=== PATIENT | male | born 1985 | race Caucasian/White ===

== ENCOUNTER 2020-10-13 20:27 | Emergency (ER) | payer BC ==
[~2020-10-13] VITALS: Ht 177.8 cm; Wt 108.9 kg
[2020-10-13] MEDS ORDERED: HYDCHL25 PO (22:01)
== END 2020-10-13 23:00 | disposition home or self-care (01) ==
LOC: ER 20:27
DX: T18.8XXA Foreign body in other parts of alimentary tract, initial encounter (principal); Z79.899 Other long term (current) drug therapy
CPT/HCPCS: 70360; 71046; 74018; 99283-25

== ENCOUNTER 2021-05-03 06:15 | Day surgery (SDC) | payer OTHER ==
[~2021-05-03] VITALS: Ht 177.8 cm; Wt 121.9 kg
[~2021-05-03 06:15] MED LIST: HYDCHL25 PO; Vitamin B Comple1 EA PO
--- NOTE | 2021-05-03 06:52 | NUR ---
Ambulatory in Day Surgery History, Chart, Medications and Allergies reviewed before start of procedure. Lungs clear anteriorly to Auscultation. Pre-Op teaching done. Pt verbalizes understanding. Patient States Post-Procedure ride home has been arranged.
--- NOTE | 2021-05-03 07:57 | NUR ---
05/03/21 0757 Batsheva Sandoval NO ANTIBIOTICS ORDERED PER PHYSICIAN
--- NOTE | 2021-05-03 09:27 | NUR ---
PT MEETS CRITERIA FOR DC. Patient up to Ambulate independently. Gait steady. Discharge instructions reviewed with patient. Patient verbalizes understanding. Copy given to patient to take home. Discharged via wheelchair to private car for ride home.
== END 2021-05-03 23:12 | disposition home or self-care (01) ==
LOC: ORSCMMR 06:15 → ORD 07:30 → ORSCMMR 07:30
PROVIDERS: Surgery
PROC: 0JB80ZZ Excision of Abdomen Subcutaneous Tissue and Fascia, Open Approach (ICD-10-PCS; principal; 2021-05-03 07:30)
DX: D17.1 Benign lipomatous neoplasm of skin and subcutaneous tissue of trunk (principal); I10 Essential (primary) hypertension; E66.01 Morbid (severe) obesity due to excess calories; Z68.38 Body mass index [BMI] 38.0-38.9, adult
CPT/HCPCS: 88304; A9270; J1100; J1885; J2250; J2405; J2704; J3010; J7120

== ENCOUNTER → 2024-04-19 | Outpatient (CLI) | payer OTHER ==
[~2024-04-19] MED LIST changes: +HYDHCL25 PO; +LEVFLO500 PO
== END ==
LOC: LAB SHORT 12:23 → LAB 12:23
DX: D10.39 Benign neoplasm of other parts of mouth (principal)
CPT/HCPCS: 88305